=== PATIENT | male | born 1935 | race Caucasian/White ===

== ENCOUNTER 2018-11-22 06:16 | Day surgery (SDC) | payer MEDICARE, OTHER ==
[2018-11-22] MEDS ORDERED: FENTAnyl 50 MCG/ML VIAL ×2 (06:42→08:06)
[2018-11-22] MEDS ORDERED: SOD CHLORIDE 0.9% 500 ML (06:42)
[2018-11-22] MEDS ORDERED: MIDAZOLAM 1 MG/ML 2 ML INJ ×2 (06:42→08:06)
[2018-11-22] MEDS ORDERED: LIDOCAINE 1%/EPI (1:100,000) (MDV) 20 ML (06:43)
[2018-11-22] MEDS ORDERED: POLYMYXIN/BACITRACIN 1L IRRIG (06:47)
[2018-11-22 07:12] LABS: ADD MAN DIFF? NO
[2018-11-22 07:17] LABS: WHITE BLOOD COUNT 5.3 10^3/ul (4.8-10.8)
[2018-11-22 07:17] LABS: BASOPHILS % 0.6 % (0.0-2.0); EOSINOPHILS # 0.1 10^3/ul (0.0-0.5); EOSINOPHILS % 1.9 % (0.0-7.0); HEMATOCRIT 40.3 % (42.0-52.0); HEMOGLOBIN 13.9 g/dl (14.0-18.0); LYMPHOCYTES # 2.5 10^3/ul (0.8-2.9); LYMPHOCYTES % 46.4 % (15.0-51.0); MEAN CORPUSCULAR HGB CONC 34.5 g/dl (32.0-37.0); MEAN CORPUSCULAR VOLUME 86.9 fl (82.0-101.0); MEAN PLATELET VOLUME 9.4 fl (7.4-10.4); MONOCYTE # 0.4 10^3/ul (0.3-0.9); MONOCYTES % 7.3 % (0.0-11.0); NEUTROPHIL # 2.3 10^3/ul (1.6-7.5); NEUTROPHILS % 43.6 % (39.0-77.0); PLATELET COUNT 183 10^3/UL (140-415); RED BLOOD COUNT 4.64 10^6/ul (4.70-6.10)
[2018-11-22 07:20] LABS: INR 0.98; PROTIME 13.1 Sec (11.9-14.9)
[2018-11-22 07:21] LABS: PARTIAL THROMBOPLASTIN TIME 27.2 Sec (23.0-35.0)
[2018-11-22 07:25] LABS: ALANINE AMINOTRANSFERASE 21 IU/L (13-69); ALBUMIN 4.4 g/dl (3.3-4.9); ALBUMIN/GLOBULIN RATIO 1.37; ALKALINE PHOSPHATASE 76 IU/L (42-121); ANION GAP 10 (5-13); ASPARTATE AMINO TRANSFERASE 19 IU/L (15-46); BILIRUBIN,INDIRECT 0.6 mg/dl (0-1.1); BILIRUBIN,TOTAL 0.6 mg/dl (0.2-1.3); BLOOD UREA NITROGEN 14 mg/dl (7-20); CALCIUM 9.5 mg/dl (8.4-10.2); CARBON DIOXIDE 28 mmol/L (21-31); CHLORIDE 103 mmol/L (97-110); CHOL/HDL RATIO 4.6 RATIO; CHOLESTEROL 134 mg/dl (100-200); CREATINE KINASE 53 IU/L (23-200); CREATININE 1.18 mg/dl (0.61-1.24); GLUCOSE 111 mg/dl (70-220); HDL CHOLESTEROL 29 mg/dl (31-75); LDL CHOLESTEROL,CALCULATED 83 mg/dl; SODIUM 141 mmol/L (135-144); TOTAL PROTEIN 7.6 g/dl (6.1-8.1); TRIGLYCERIDES 109 mg/dl (0-149)
[2018-11-22] MEDS ORDERED: CEFAZOLIN 1 GM/50 ML (PMX) 100 ML IVPB (07:25)
[2018-11-22] MEDS ORDERED: LIDOCAINE 1% (MDV) 20 ML INJ (08:01)
[2018-11-22] MEDS ORDERED: morphine 2 MG INJ IV (09:00)
[2018-11-22] MEDS: CEFAZOLIN 1 GM/50 ML (PMX) 50 ML IVPB (14:03)
== END 2018-11-22 15:40 | disposition home or self-care (01) ==
LOC: SDS 06:16
DX: Z45.010 Encounter for checking and testing of cardiac pacemaker pulse generator [battery] (principal); I44.2 Atrioventricular block, complete; I11.0 Hypertensive heart disease with heart failure; I50.9 Heart failure, unspecified; E78.5 Hyperlipidemia, unspecified; I48.91 Unspecified atrial fibrillation
CPT/HCPCS: 33228; 80053; 80061; 82550; 85025; 85610; 85730; 93005